=== PATIENT | male | born 1950 | race Caucasian/White ===

== ENCOUNTER 2020-11-12 06:21 | Day surgery (SDC) | payer BC ==
[~2020-11-12] VITALS: Ht 188 cm; Wt 90.0 kg
[~2020-11-12 06:21] MED LIST: HYDROmorphone 2 MG/ML VIAL IVP PRN; IV RINGERS,LACTATED 1000ML 1,000 ML IV SCH; MORPHINE SULFATE 2 MG/ML INJ. IVP PRN; PROCHLORPERAZINE 10 MG/2 ML VIAL. IVP PRN; fentaNYL PF VIAL 100 MCG/2 ML VIAL IVP PRN
[2020-11-12 06:46] VITALS: BP 123/60
[2020-11-12] MEDS ORDERED: EPINEPHrine VIAL 30 MG/30 ML VIAL ONE (07:02)
[2020-11-12] MEDS ORDERED: DEXAMETHASONE SOD PHOS 4 MG/ML VIAL ONE (07:08)
[2020-11-12] MEDS ORDERED: fentaNYL PF VIAL 100 MCG/2 ML VIAL ONE (07:08)
[2020-11-12] MEDS ORDERED: FAMOTIDINE 20 MG/2 ML VIAL ONE (07:08)
[2020-11-12] MEDS ORDERED: MIDAZOLAM HCL/PF 2 MG/2 ML VIAL. ONE (07:08)
[2020-11-12] MEDS ORDERED: PROPOFOL 10 MG/ML (20ML) VIAL. IV ONE (07:08)
[2020-11-12] MEDS ORDERED: ROCURONIUM 50 MG/5 ML VIAL. ONE (07:09)
[2020-11-12] MEDS ORDERED: ONDANSETRON PF 4 MG/2 ML VIAL. ONE (07:09)
[2020-11-12] MEDS ORDERED: LIDOCAINE 1% PF 5 ML VIAL. ONE (07:09)
[2020-11-12] MEDS ORDERED: ROPIVacaine 0.5% PF 20 ML VIAL. ONE (07:17)
[2020-11-12] MEDS ORDERED: OXYC1TAB19 PO (08:03)
[2020-11-12] MEDS ORDERED: PHENYLEPHRINE in 0.9% NACL PF 1 MG/10 ML SYRINGE. IV ONE (09:09)
[2020-11-12] MEDS ORDERED: HYDROcodone/APAP 7.5/325MG 1 TAB TABLET PO ONE (10:30)
[2020-11-12 10:49] VITALS: BP 130/72
--- NOTE | 2020-11-12 17:28 | PDOC4 ---
Operative Note Operative Note Date of surgery: 11/12/2020 Preoperative diagnosis: Rotator cuff tear and biceps labral compromise Postoperative diagnosis: Same with full-thickness retracted rotator cuff tear, compromise of biceps insertion and labral fraying throughout its circumference and adhesive capsulitis Operative procedure: Left shoulder arthroscopy extensive labral debridement and capsular release, mini open rotator cuff repair and biceps tenodesis Surgeon: Reynaldo Assist: Eugenio canseco assist Anesthesia: General plus interscalene block Estimated blood loss: 15 cc Complications: None Operative indications: Please see my orthopedic clinic note for detailed operative indications and note that we had covered the options for treatment of a rotator cuff tear and suspected biceps compromise with likely rotator cuff tear and biceps tenodesis and addressing other pathologic conditions. I talked him about the possibility of infection nonhealing continued pain medical other anesthetic complications among others. All his questions were answered and he wishes to proceed with surgical evaluation and treatment Operative text: Patient was identified procedure verified patient placed in the supine position on the operating table. After adequate amounts of general anesthesia were administered along with a pre-existing scalene block patient was placed in the decubitus position left side up and all bony prominences were well-padded. The shoulder was then examined under anesthesia found to lack terminal range of motion of about 40 degrees elevation 30 degrees terminal external rotation in abduction and no instability was present. The shoulder was then prepped and draped in standard sterile fashion and placed in the arthi[employer]era pic arm [place] with a total of 10 pounds of traction and after timeout was performed patient procedure identified and verified a standard posterior portal was established an anterior portal established using spinal needle localization and the shoulder joint was systematically examined. He was found to have an unstable superior labral tear compromising the biceps anchor and split tear of the biceps tendon. The labrum was trimmed back to stable tissue with arthroscopic shaver and bipolar electrocautery and biceps was tagged and tenotomized. He was noted to have a large retracted tear of the supraspinatus and anterior portion of the infraspinatus tendon. The subacromial space was entered and a lateral portal was established. Rotator cuff was mobilized and tagging sutures were placed under arthroscopic guidance. A mini open incision deltoid splitting was made laterally and rotator cuff footprint was debrided back to stable bleeding tissue with the arthroscopic shaver. I elected based on the degree of compromise to the rotator cuff tendon tissue to incorporate the biceps tenodesis into the rotator cuff repair and use the tendon as additional reinforcement by taking advantage of the split portion of the biceps tendon and flattening it proximally. #2 max braid sutures were placed with a [employer] suture passing device and the posterior limb of the tear consisting of the infraspinatus was brought anteriorly and reinforced with the biceps tendon. Likewise the retracted supraspinatus was kept under tension and again reinforced with the biceps tendon to obtain superior coverage of the humeral head and all traction sutures were placed laterally with a total of 2 laterally based [facility] [employer] lateral row anchors which provided excellent footprint apposition and a visibly intact repair. Irrigation carried out normal saline solution deltoid split was carried out with buried Vicryl suture portals were closed with nylon suture sterile dressings were applied patient was placed in an immobilizer and transferred to postop holding in stable condition having tolerated procedure well. Eugenio martinez assisted in patient positioning prepping draping retraction closure and dressings JUDITH OBRIEN MD Nov 12, 2020 17:28
== END 2020-11-12 11:30 | disposition home or self-care (01) ==
LOC: SURG 06:21
PROVIDERS: ATTEND Orthopaedic Surgery
DX: M75.102 Unspecified rotator cuff tear or rupture of left shoulder, not specified as traumatic (principal); M75.02 Adhesive capsulitis of left shoulder; Z87.891 Personal history of nicotine dependence; Z79.899 Other long term (current) drug therapy; Z98.890 Other specified postprocedural states
CPT/HCPCS: 29827; 29828; 64415; A4565; A4930; C1713; J0171; J0690; J1100; J2250; J2370; J2405; J2704; J2795; J3010; J3490